=== PATIENT | female | born 2005 | race Caucasian/White ===

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

== ENCOUNTER 2025-01-02 22:05 | Emergency (ER) | payer OTHER, SELFPAY ==
--- NOTE | ~2025-01-02 | XR_ITS ---
CLINICAL HISTORY: Pain, swelling 3 view left ankle Comparison: None provided Findings: No acute fractures. Ankle mortise intact. No significant loss of joint space, osteophytes, or erosions. No ankle effusion. Generalized soft tissue swelling of the ankle. No radiopaque foreign body. IMPRESSION: 1. No acute fracture. This document has been electronically signed by: Ailyn Sorto MD on 01/02/2025 23:10:27
--- NOTE | ~2025-01-02 | XR_ITS ---
CLINICAL HISTORY: foot injury 3 view left foot Comparison: None provided Findings: No fractures or dislocations. No significant loss of joint space, osteophytes, or erosions. No ankle effusion. No radiopaque foreign body. IMPRESSION: 1. No acute fracture. This document has been electronically signed by: Ailyn Sorto MD on 01/02/2025 23:15:35
[2025-01-02 22:13] VITALS: BP 139/77; PULSE 110; RESP 20; TEMP 36.8; O2SAT 100; BMI 33.3
--- NOTE | 2025-01-02 22:24 | PC.NURSE ---
PT in Examination room Axo3, pt stated she was walking didn't look where i was going and fell into a ditch.)NO Loc, pt not on blood thinners, Left ankle 8 out of 10 on numeric pain scale. Pedal pulses present. Skin intact. Warm blanket given, call bedolla within reach. Awaiting provider.
--- NOTE | 2025-01-02 22:35 | ED.LOWEXIN ---
HPI - Extremity Injury (Lower) General Chief Complaint: Extremity Injury, Lower Stated Complaint: left ankle inj Time Seen by Provider: 01/02/25 22:29 Source: patient and family Mode of arrival: ambulatory Limitations: no limitations History of Present Illness ED Provider: DR. Mathur HPI Narrative: 19-year-old female otherwise healthy came in for evaluation of left foot / ankle pain after stepped on small raised ditch causing her to twist her foot and ankle internally and caused the patient to fall down, patient was able to bear weight on her foot and walks after the fall, complained of no head injury or headache, no neck injury or pain, no CP, no SOB, no extremities pain or deformity otherwise. Declined being today. Related Data Previous Rx's ?Medication ?Instructions ?Recorded ondansetron 4 mg disintegrating 4 mg PO Q8H PRN nausea and 10/03/22 tablet vomiting #20 tabs famotidine 40 mg/5 mL (8 mg/mL) 20 mg (2.5 mL) PO DAILY 4 weeks 10/29/22 oral suspension #70 mL Allergies Allergy/AdvReac Type Severity Reaction Status Date / Time No Known Allergies Allergy Verified 01/02/25 22:14 Review of Systems Review of Systems: All other systems are reviewed and are negative Constitutional: Reports as per HPI and Reports no additional constitutional complaints Eyes: Reports as per HPI and Reports no additional eye complaints Reports system reviewed and no additional complaints, except as documented Cardiovascular: Reports as per HPI and Reports no additional cardiovascular complaints Respiratory: Reports as per HPI and Reports no additional respiratory complaints Gastrointestinal: Reports as per HPI and Reports no additional gastrointestinal complaints Genitourinary: Reports no additional female genitourinary complaints Musculoskeletal: Reports no additional musculoskeletal complaints Skin/Breast: Reports system reviewed and no additional complaints, except as docu Psychiatric: Reports no additional psychiatric complaints Endocrine: Reports no additional endocrine complaints Hematologic/Lymphatic: Reports no additional hematologic/lymphatic complaints Allergic/Immunologic: Reports no additional allergic/immunologic complaints Reports system reviewed and no additional complaints, except as documented and Reports Abnormal speech present [facility] Social History Social History Alcohol intake: never Patient Tobacco Use Status: Never used Tobacco Smoked in Last 30 Days: No Use of substances other than those prescribed or required for medical reasons: No Do you have a plan to hurt others: No Plan Patient : No Physical Exam Vital Signs: Vital Signs: Last Vital Signs Temp 98.3 F 01/02/25 22:13 Pulse 110 H 01/02/25 22:13 Resp 20 01/02/25 22:13 BP 139/77 01/02/25 22:13 Pulse Ox 100 01/02/25 22:13 O2 Del Method Room Air 01/02/25 22:13 BMI result Body Mass Index 33.3 Vital signs have been reviewed and appear to be correct. Blood pressure elevated. Heart rate normal. Respiratory rate normal. Temperature normal. Oxygen saturation normal. Appearance: Alert. Oriented X3. No acute distress. Head: Normal external exam. Normocephalic. Atraumatic. No Hernandez signs noted. No raccoon eyes noted Eyes: PERRLA. EOMI. Conjunctiva and sclera normal. Eyelids normal. ENT: TM's Normal. Pharynx normal. Uvula midline. Moist mucous membranes. No trismus noted. No drooling noted. No muffled voice noted. Neck: Normal inspection. Neck supple. FROM. No adenopathy. Thyroid Normal. No meningeal signs. No neck mass noted. CVS: Normal heart rate and rhythm. Heart sound normal. No murmurs noted. Pulses normal throughout. Respiratory: No respiratory distress. Painless inspiration. Breath sounds normal. No wheezes/rales/rhonchi noted. Chest nontender. No accessory muscle usage noted or decreased air movement noted. Abdomen: Soft and nontender. Bowel sounds normal in all 4 quadrants. No distention noted. No organomegaly noted. No visible injury noted. Back: No CVA tenderness. Full range of motion noted. Skin: Skin warm and dry. Normal skin color. Normal skin turgor. No rashes/lesions/lacerations noted. Extremities: Left lower extremity: Diffuse tenderness over left ankle mostly in the lateral malleolus area, and on the mid foot, no deformity, no step-off is appreciated, good PT/ DP pulsation, sensation is intact in the left foot. Neuro: Oriented X 3. Cranial nerve exam: II-XII are grossly intact No motor deficit. No sensory deficit. Reflexes normal. Course Reevaluation(s) Reevaluation #1: Left foot/ ankle contusion, no fracture. Will recommend NSAIDs and ice application to the area. Shaun wrap for external support. Time: 11:30 Medical Decision Making Differential Diagnosis Differential Diagnoses: The differential diagnosis associated with the presentation includes ( Left foot fracture, left foot contusion, left ankle fracture, left ankle contusion, neurovascular compromise.) Admission/Observation Consideration of admission/observation: Escalation of care including admission/observation considered Independent Interpretation I performed an independent interpretation of an: Plain X-Ray ( Left ankle/ left foot: No acute fracture or dislocation.) Radiology Impression Discussion of test interpretation with radiology: I have reviewed the radiologist's reading. Discharge Plan Discharge Clinical Impression: Ankle sprain and strain Patient Disposition: Home, Self-Care Instructions: Ankle Sprain (ED) Additional Instructions: Apply ice to the tender area, take [id number] ibuprofen 200 mg tablet every 6 hours if needed for pain. Prescriptions: No Action ondansetron 4 mg tablet,disintegrating 4 mg PO Q8H PRN (Reason: nausea and vomiting) Qty: 20 0RF famotidine 40 mg/5 mL (8 mg/mL) suspension 20 mg PO DAILY 28 Days Qty: 70 0RF Stand Alone Forms: Work/School Release Print Language: Swedish
--- OUTSIDE RECORDS SUMMARY | 2025-01-02 22:47 | XMS_ITS | Clinical Summary ---
Author Organization [facility] Address [address] [place] [address] Phone Care Team Providers Care Director Patient Accounting Name Role Phone Unavailable Primary Care Provider Unavailabl e Social History Tobacco Use Types Packs/Day Years Used Date Smoking Tobacco: Never Assessed Comments Unknown Sex and Gender Information Value Date Recorded Sex Assigned at Not on file Legal Sex Female 3:50 PM EDT Gender Identity Not on file Sexual Orientation Not on file Plan of Treatment Health Maintenance Due Date Last Done Comments Men B Vaccine (1 of 2 - Standard) 2020 Influenza Vaccines (#1) 2024 02/05/20 15, 04/01/2014, 01/12/2013, Additional history exists COVID-19 Vaccine ( season) 2024 DTaP,Tdap,and Td Vaccines (7 - Td or Tdap) 09/03/2026 09/03/2016, 10/27/2008, 10/17/2006, Additional history exists Hepatitis B Vaccines Completed 04/06/2005, 02/06/2005, 2004 Pneumococcal Vaccine Completed 12/13/2005, 04/06/2005, 02/06/2005, Additional history exists HIB Vaccines Completed 10/17/2006, 03/22, 02/06/2005, Additional history exists IPV Vaccines Completed 10/27/2008, 03/22, 04/06/2005, Additional history exists MMR Vaccines Completed 10/27/2008, 12/13/2005 Varicella Vaccines Completed 10/27/2008, 12/13/2005 Meningococcal Vaccine Aged Out 09/03/2016 No latesha lisa eligible based on patient's age to complete this topic HPV Vaccines Completed 08/12/2020, 09/16/2018 Hepatitis A Vaccines Aged Out No long er eligible based on patient's age to complete this topic Insurance BCBS BLUE CARD OUT OF STATE
--- OUTSIDE RECORDS SUMMARY | 2025-01-02 22:47 | XMS_ITS | Clinical Summary ---
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 Name Role Phone Giana Dorantes MD Primary Care Provider Unavaila ble Allergies No known active allergies Medications albuterol HFA (PROVENTIL HFA;VENTOLIN HFA) 108 (90 Base) MCG/ACT inhaler Inhale 2 puffs 08/12/2020 Active Levonorgest-Eth Estrad -Day 0.15-0.03 &0.01 MG tablet Take 1 tablet by mouth 1 (one) time each day 12/07/2020 Active Active Problems Problem Noted Date Diagnosed Date Pneumonia 12/15/2020 Overview (12/15/2020): 11/28 with wheeze; 08/31 Vesicoureteric reflux 12/15/2020 Muscular headache 09/16/2018 Overview (12/15/2020): 09/07 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 Overview (12/15/2020): At [facility] 09/05, xray showed normal variant 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 (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): Distal tibia, on xray done for R ankle sprain; seen by KAROLINE 04/06, follouwp 3 weeks later - xrays reviewed by Dr Porter - very small benign-appearing lytic lesion in laterl distant tibia, consitent with nonossifying fibroma- advised recheck in 6 mos for xray to ensure no interval change in bone lesion - this was not done 09/06 - resolved on xray at [place] Streptococcal sore throat 08/08/2015 Overview (12/15/2020): 08/05 Urinary tract infectious disease 12/14/2010 Overview (12/15/2020): With high fever 2006, Gr IV VUR on L Acute sinusitis 11/14/2010 Overview (12/15/2020): 05/02, 05/03 Asthma 11/14/2010 Overview (12/15/2020): With pneumonia 11/28, with URI 09/29, with pneumonia 08/31 ?exercise-induced 09/05, trial albuterol prn Immunizations Immunization Administration Dates Next Due DTaP 10/27/2008,04/06/2005,02/06/2005 ,2004 DTaP / HiB 10/17/2006 DTaP / HiB / IPV 04/06/2005,02/06/2005, 5 H1N1 Inj Preservative Free 07/26/2009,04/12/2009 HPV, Quadrivalent 08/12/2020,09/16/2018 Hep B, Adolescent or Pediatric 04/06/2005,2004,2004 IPV 10/27/2008,04/06/2005,02/06/2005 ,2004 Influenza (IM) Preservative Free 02/04/2015,03/22,01/12/2013 Influenza TIV (IM) 01/01/2012,12/26/2010, 011,04/12/2009 MMR 10/27/2008,12/13/2005 Meningococcal MCV4P 09/03/2016 Pneumococcal Conjugate 12/13/2005,04/06/2005,,2004 Tdap 09/03/2016 Varicella 10/27/2008,12/13/2005 Family History Medical History Relation Comments Diabetes Father Kidney disease Father Cancer Maternal Grandfather Cancer Paternal Grandfather Relation Status Comments Father Alive Maternal Grandfather Mother Alive Paternal Grandfather Social History Tobacco Use Types Packs/Day Years Used Date Smoking Tobacco: Never Smokeless Tobacco: Never Alcohol Use Standard Drinks/Week Comments No 0 (1 standard drink = 0.6 oz pur e alcohol) Comments Unknown Sex and Gender Information Value Date Recorded Sex Assigned at Not on file Legal Sex Female 4:35 PM EST Gender Identity Not on file Sexual Orientation Not on file Last Filed Vital Signs Vital Sign Reading Time Taken Comments Blood Pressure 104/78 12/15/2020 3:45 PM EDT Pulse 85 12/15/2020 3:45 PM EDT Temperature - - Respiratory Rate - - Oxygen Saturation 99% 12/15/2020 3:45 PM EDT Inhaled Oxygen Concentration - - Weight 69.9 kg (154 lb) 12/15/2020 3:45 PM EDT Height 157.5 cm (5' 2 ) 12/15/2020 3:45 PM EDT Body Mass Index 28.17 12/15/2020 3:45 PM EDT Plan of Treatment Health Maintenance Due Date Last Done Comments Influenza Vaccine (#1) 2024 5, 04/01/2014, 01/12/2013, Additional history exists Hepatitis B Vaccine Completed 04/06/2005, 02/06/2005, 2004 Pneumococcal Vaccine: 50+ Years Discontinued 12/13/2005, 04/06/2005, 02/06/2005, Additional history exists Pneumococcal Vaccine: Peds (0 to 5 Years) and At-Risk Patients (6 to 49 Years) Aged Out 12/13/2005, 04/06/2005, 02/06/2005, Additional history exists No longer eligible based on patient's age to complete this topic Insurance [employer] 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
[2025-01-03 00:12] VITALS: BP 119/66; PULSE 99; RESP 18; TEMP 36.7; O2SAT 99
[2025-01-03 00:13] VITALS: BP 119/66; PULSE 99; RESP 18; TEMP 36.7; O2SAT 99
== END 2025-01-03 00:13 | disposition home or self-care (01) ==
PROVIDERS: Emergency Provider Emergency Medicine
DX: S93.402A Sprain of unspecified ligament of left ankle, initial encounter (principal); S96.912A Strain of unspecified muscle and tendon at ankle and foot level, left foot, initial encounter; X58.XXXA Exposure to other specified factors, initial encounter; Y93.89 Activity, other specified; Y92.89 Other specified places as the place of occurrence of the external cause; Y99.9 Unspecified external cause status; M25.572 Pain in left ankle and joints of left foot
CPT/HCPCS: 73610; 73630; 99283; 99284

== ENCOUNTER → 2025-01-02 22:32 | Outpatient (BNV) | payer OTHER, SELFPAY | PROVIDERS: Emergency Provider Emergency Medicine; Visit Provider Student in an Organized Health Care Education/Training Program | DX: M25.572 Pain in left ankle and joints of left foot (principal); M79.672 Pain in left foot | CPT/HCPCS: 73610; 73630 ==